=== PATIENT | female | born 1950 ===

== ENCOUNTER 2019-11-23 06:30 | Day surgery (SDC) | payer OTHER | END 2019-11-23 12:05 | disposition home or self-care (01) | LOC: AMB-ENDOS 06:30 → ADM 14:00 | PROVIDERS: ATTEND Colon & Rectal Surgery | DX: K62.89 Other specified diseases of anus and rectum (principal); K64.1 Second degree hemorrhoids ==

== ENCOUNTER → 2025-02-25 06:45 | Outpatient (CLI) | payer OTHER ==
[2025-02-25 07:51] LABS: URINE APPEARANCE Clear; URINE BILIRRUBIN Negative (NEGATIVE); URINE BLOOD Negative; URINE COLOR Yellow; URINE KETONE Negative (NEGATIVE); URINE LEUKOCYTE Negative; URINE NITRATE Negative; URINE PROTEIN Negative (NEGATIVE); URINE UROBILINOGEN 0.2 E.U./dl
[2025-02-25 07:54] LABS: URINE EPITHELIAL CELLS 1.8 uL (0.0-38.8); URINE WBC 6.6 uL (0.0-23.2)
[2025-02-25 07:55] LABS: BASO % 0.6 % (0.1-1.2); EOS # 0.11 (0.04-0.54); EOS % 1.6 % (0.7-7.0); LYMPH # 2.42 (1.18-3.74); LYMPH % 34.7 % (19.3-53.1); MEAN PLATELET VOLUME 9.50 fl (9.4-12.4); MONO # 0.51 (0.24-0.82); MONO % 7.3 % (4.7-12.5); NEUT # 3.88 (1.56-6.13); NEUT % 55.7 % (34.0-71.1); RED CELL DISTRIBUTION WIDTH 13.2 % (11.6-14.4)
[2025-02-25 08:08] LABS: URINE BACTERIA 2.3 uL (0.0-1933); URINE CAST 0.00 uL (0.0-1.40); URINE GLUCOSE >=1000 MG/DL (NEGATIVE); URINE RBC 1.3 uL (0.0-20.8)
[2025-02-25 08:39] LABS: ALT/SGPT 20.0 U/L (12-78); AST/SGOT 17.0 U/L (15-37); BILIRUBIN TOTAL 0.46 mg/dL (0.3-1.2); BUN CREA RATIO 24.0 (7.0-25.0); CREATININE SERUM 1.19 mg/dL (0.55-1.02); GFR 44.22; GLOBULINA 3.6 G/DL (2.4-3.5); GLUCOSE FASTING 136.0 mg/dL (65-100); OSMOLALITY SERUM 293.0 MOSM/KG (275-295)
[2025-02-25 08:46] LABS: INR 0.95
== END | disposition home or self-care (01) ==
LOC: RAD 06:45
PROVIDERS: ATTEND Obstetrics & Gynecology Gynecology
DX: R07.89 Other chest pain (principal); Z01.810 Encounter for preprocedural cardiovascular examination; I10 Essential (primary) hypertension; Z01.812 Encounter for preprocedural laboratory examination; Z01.818 Encounter for other preprocedural examination; D50.8 Other iron deficiency anemias; R73.03 Prediabetes; D68.8 Other specified coagulation defects; N39.0 Urinary tract infection, site not specified

== ENCOUNTER 2025-03-12 06:00 | Day surgery (SDC) | payer OTHER ==
[~2025-03-12 06:00] MED LIST: ACTOS15 MG PO; FARXIGA10 MG PO; HORIZANT300 MG PO; LANTUS SOL100 UNIT/1; LIPITOR20 MG PO; OZEMPIC1 MG/0.71
[2025-03-12] MEDS ORDERED: LIDOCAINE HCL 1%/EPINEPHRINE 20ML VIAL IJ ONE (06:59)
[2025-03-12] MEDS ORDERED: CEFAZOLIN SODIUM 1,000 MG VIAL ONE (06:59)
[2025-03-12] MEDS ORDERED: CHLORHEXIDINE GLUCONATE 120 ML BOTTLE TOP ONE (06:59)
[2025-03-12] MEDS ORDERED: GENTAMICIN SULFATE 40 MG/ML VIAL ONE (07:06)
[2025-03-12] MEDS ORDERED: MACROBID 100 M100 MG PO (10:06)
[2025-03-12] MEDS ORDERED: TRAM1TAB98 PO (10:11)
== END 2025-03-12 13:15 | disposition home or self-care (01) ==
LOC: CIR.AMB 06:00
PROVIDERS: ATTEND Obstetrics & Gynecology Gynecology
DX: N81.5 Vaginal enterocele (principal); N81.6 Rectocele; N81.11 Cystocele, midline